=== PATIENT | female | born 1980 | race Caucasian/White ===

== ENCOUNTER 2017-07-28 15:46 | Emergency (ER) | payer BC ==
[2017-07-28] MEDS ORDERED: HYDROCODONE/ACETAMINOPHEN 5-325 MG 6 TAB/DSPK PO PRN (16:37)
[2017-07-28] MEDS ORDERED: KETOROLAC TROMETHAMINE 60 MG/2 ML SDV IM ONE (16:37)
--- NOTE | 2017-07-28 16:47 | ER Document Report ---
ED Extremity Problem, Lower - General Chief Complaint: Knee Pain Stated Complaint: FALL, RIGHT KNEE INJURY Time Seen by Provider: 07/28/17 16:25 Mode of Arrival: Wheelchair Information source: Patient Notes: 37-year-old female presents to ED for complaint of pain to bilateral knees worse on the right. She states she fell last night landing on both knees. She has abrasions to both knees with swelling to the right. She states she was work walking today at work but as the day has gone on the pain is gotten worse and the swelling has become worse. She states she took some Tylenol but cannot take ibuprofen because she has had a gastric bypass. TRAVEL OUTSIDE OF THE [place] IN LAST 30 DAYS: No - HPI Patient complains to provider of: Injury, Pain, Swelling Location: Knee Occurred: Yesterday Where: Home Onset/Duration: Persistent Quality of pain: Achy, Sharp, Throbbing Severity: Mild Pain Level: 2 Context: Fell, Other - abrasion Recent injury: Yes Associated symptoms: Painful ambulation Exacerbated by: Movement, Walking Relieved by: Elevation, Ice - Related Data Allergies/Adverse Reactions: No Known Allergies Allergy (Unverified 07/28/17 15:50) Past Medical History - General Information source: Patient - Social History Smoking Status: Current Every Day Smoker Cigarette use (# per day): Yes - 2-3 cig a day Chew tobacco use (# tins/day): No Smoking Education Provided: Yes - less than 1 min Frequency of alcohol use: Social Drug Abuse: None 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 denies: Arthritis, CAD, COPD, CVA, DM, Hypertension Patient has suicidal ideation: No Patient has homicidal ideation: No - Past Medical History Cardiac Medical History: Reports: None Pulmonary Medical History: Reports: None EENT Medical History: Reports: None Neurological Medical History: Reports: None Endocrine Medical History: Reports: None Renal/ Medical History: Reports: None Malignancy Medical History: Reports: None GI Medical History: Reports: None Musculoskeltal Medical History: Reports Hx Musculoskeletal Deformity - Leg deformity at and needed to wear leg braces for many months, Reports Hx Musculoskeletal Trauma Psychiatric Medical History: Reports: Hx Anxiety Traumatic Medical History: Reports: Hx Fractures - left foot Infectious Medical History: Reports: None Past Surgical History: Reports: Hx Adenoidectomy, Hx Cholecystectomy, Hx Gastric Bypass Surgery, Hx Oral Surgery, Hx Tonsillectomy - Immunizations Immunizations up to date: Yes Review of Systems - Review of Systems Constitutional: No symptoms reported EENT: No symptoms reported Cardiovascular: No symptoms reported Respiratory: No symptoms reported Gastrointestinal: No symptoms reported Genitourinary: No symptoms reported Female Genitourinary: No symptoms reported Musculoskeletal: Joint pain, Joint swelling, Muscle pain, Muscle stiffness Skin: Other - Abrasions both knees Hematologic/Lymphatic: No symptoms reported Neurological/Psychological: No symptoms reported -: Yes All other systems reviewed and negative Physical Exam - Vital signs Vitals: Temp Pulse Resp BP Pulse Ox 98.2 F 83 16 117/80 98 07/28/17 15:51 07/28/17 15:51 07/28/17 15:51 07/28/17 15:51 07/28/17 15:51 Interpretation: Normal - General General appearance: Appears well, Alert - HEENT Head: Normocephalic, Atraumatic Eyes: Normal Pupils: PERRL - Respiratory Respiratory status: No respiratory distress Chest status: Nontender Breath sounds: Normal Chest palpation: Normal - Cardiovascular Rhythm: Regular Heart sounds: Normal auscultation Murmur: No - Abdominal Inspection: Normal Distension: No distension Bowel sounds: Normal Tenderness: Nontender Organomegaly: No organomegaly - Back Back: Normal, Nontender - Extremities General upper extremity: Normal inspection, Nontender, Normal color, Normal ROM , Normal temperature General lower extremity: Normal color, Normal ROM, Normal temperature, Normal weight bearing. No: Andre's sign Knee: Tender, Abrasion, Ecchymosis, Pain with ROM, Patellar tendon intact. No: Deformity, Dislocation, Drawer's test instability, Laceration, Laxity with valgus stress, Laxity with varus stress, Popliteal fossa tender, Tender joint line - Neurological Neuro grossly intact: Yes Cognition: Normal Orientation: AAOx4 [place] Coma Scale Eye Opening: Spontaneous [place] Coma Scale Verbal: Oriented [place] Coma Scale Motor: Obeys Commands [place] Coma Scale Total: 15 Speech: Normal Motor strength normal: LUE, RUE, LLE, RLE Sensory: Normal - Psychological Associated symptoms: Normal affect, Normal mood - Skin Skin Temperature: Warm Skin Moisture: Dry Skin Color: Normal Course - Vital Signs Vital signs: Temp Pulse Resp BP Pulse Ox 98.2 F 76 16 108/71 98 07/28/17 15:51 07/28/17 18:30 07/28/17 18:30 07/28/17 18:30 07/28/17 18:30 - Diagnostic Test Radiology reviewed: Image reviewed, Reports reviewed Discharge - Discharge Clinical Impression: Abrasion of knee, bilateral, Bilateral knee contusion Fall Qualifiers: Encounter type: initial encounter Qualified Code(s): W19.XXXA - Unspecified fall, initial encounter Condition: Stable Disposition: HOME, SELF-CARE Instructions: Family Physicians / Practices Additional Instructions: CONTUSION: Your injury has resulted in a contusion -- a crushing of the deep tissues. No injury to important structures was detected during the physician's exam. Contusions vary in the amount of pain they cause, and in the length of time required for healing. Typically, the area will become bruised, and will remain painful to touch for two or three weeks. However, most patients are back to working and playing within a few days. After the initial period of rest and cold-packs, your symptoms (together with the doctor's recommendations) will determine how rapidly you can get back to full activity. Usually this means "do what feels okay, but don't do things that hurt." If re-examination was recommended, it's important to follow up as instructed. Call the doctor or return any time if pain increases, if swelling becomes severe, if you develop numbness or weakness in an injured extremity, or if any other alarming symptoms occur. ABRASIONS: An abrasion is a scraping injury of the skin. Some scarring may result. The seriousness of an abrasion is not always obvious at first. Hidden tissue damage may be present and infection may occur despite proper care. Complete healing may take from ten days to as long as a month. The healing time depends on the depth of the abrasion, and on the amount of crushing of underlying tissues from the injury. Keep the wound and dressing clean. Do not shower or bathe the area until okayed by the doctor. If the dressing gets wet, remove it and blot the wound dry, then reapply a clean dressing. Dressings should be changed every day. Sunscreen should be used for six months after the skin is healed. If any signs of infection occur (swelling, redness, increasing tenderness, red streaks, profuse purulent drainage from the abrasion, tender lumps in the armpit or groin above the abrasion, or fever), see the doctor immediately. USE OF TYLENOL (ACETAMINOPHEN): Acetaminophen may be taken for pain relief or fever control. It's much safer than aspirin, offering a wider range of "safe" dosages. It is safe during . Some brand names are Tylenol, Panadol, Datril, Anacin 3, Tempra, and Liquiprin. Acetaminophen can be repeated every four hours. The following are maximum recommended dosages: WEIGHT Dose Drops Elixir Chewable( 80mg) (LBS.) drprs=droppers tsp=teaspoon 6 40 mg 0.4 ml (1/2) 6-11 80 mg 0.8 ml (full) tsp 1 tab 12-16 120 mg 1 1/2 drprs 3/4 tsp 1 1/2 tabs 17-23 160 mg 2 drprs 1 tsp 2 tabs 24-30 240 mg 3 drprs 1 1/2 tsp 3 tabs 30-35 320 mg 2 tsp 4 tabs 36-41 360 mg 2 1/4 tsp 4 1/2 tabs 42-47 400 mg 2 1/2 tsp 5 tabs 48-53 480 mg 3 tsp 6 tabs 54-59 520 mg 3 1/4 tsp 6 1/2 tabs 60-64 560 mg 3 1/2 tsp 7 tabs 65-70 600 mg 3 3/4 tsp 7 1/2 tabs 71-76 640 mg 4 tsp 8 tabs 77-82 720 mg 4 1/2 tsp 9 tabs 83-88 800 mg 5 tsp 10 tabs >89 pounds or adults 650 mg to 900 mg Acetaminophen can be repeated every four hours. Maximum dose not to exceed 4000 mg a day. These maximum recommended dosages are slightly higher than the dosages written on the product container, but these dosages are very safe and below the toxic dosage for acetaminophen. ORAL NARCOTIC MEDICATION: You have been given a [place] dispense pack for pain control. This medication is a narcotic. It's best taken with food, as nausea can result if taken on an empty stomach. Don't operate machinery or drive within six hours of taking this medication. Do not combine this medicine with alcohol, or with any medication which can cause sedation (such as cold tablets or sleeping pills) unless you get permission from the physician. Narcotics tend to cause constipation. If possible, drink plenty of fluids and eat a diet high in fiber and fruits. Ice & Elevation Apply ice packs frequently against the painful area. Many different schedules are recommended, such as "20 minutes on, 20 minutes off" or "one hour ice, two hours rest." If you need to work, you may need to go longer between ice treatments. You should plan to have the area ice packed AT LEAST one- fourth of the time. The ice should be applied over the wrap, tape, or splint, or over a layer of cloth -- not directly against the skin. Some ice bags have a built-in cloth and can be put directly on the skin. Your injured part should be elevated as much as possible over the next 48 hours. Try to keep the injury above the level of the heart. Avoid use of the injured area. Elevation and rest will decrease the swelling. FOLLOW-UP CARE: If you have been referred to a physician for follow-up care, call the physician s office for an appointment as you were instructed or within the next two days. If you experience worsening or a significant change in your symptoms, notify the physician immediately or return to the Emergency Department at any time for re-evaluation. Forms: Return to Work
--- NOTE | 2017-07-28 16:55 | RADIOLOGY REPORT (SQ) ---
EXAM DESCRIPTION: KNEE RIGHT 4 VIEWS COMPLETED DATE/TIME: 07/28/2017 4:47 pm REASON FOR STUDY: fall pain injury COMPARISON: None. NUMBER OF VIEWS: Four views. TECHNIQUE: AP, lateral, and both oblique radiographic images acquired of the right knee. LIMITATIONS: None. FINDINGS: MINERALIZATION: Normal. BONES: No acute fracture or dislocation. 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 No worrisome b one lesions. JOINT: No effusion. SOFT TISSUES: No soft tissue swelling. No radio-opaque foreign body. OTHER: No other significant finding. IMPRESSION: NEGATIVE STUDY OF THE RIGHT KNEE. NO RADIOGRAPHIC EVIDENCE OF ACUTE INJURY. TECHNICAL DOCUMENTATION: JOB ID: [id number] [employer]- All Rights Reserved
[2017-07-28 18:31] VITALS: BP 108/71
== END 2017-07-28 18:28 | disposition home or self-care (01) ==
LOC: ER 15:46
DX: S80.212A Abrasion, left knee, initial encounter (principal); S80.211A Abrasion, right knee, initial encounter; W19.XXXA Unspecified fall, initial encounter; Y92.009 Unspecified place in unspecified non-institutional (private) residence as the place of occurrence of the external cause; F17.210 Nicotine dependence, cigarettes, uncomplicated; Z90.49 Acquired absence of other specified parts of digestive tract; Z98.84 Bariatric surgery status
CPT/HCPCS: 99283; 96372; 73564; J1885

== ENCOUNTER 2018-07-06 09:19 | Emergency (ER) | payer BC ==
[2018-07-06] MEDS ORDERED: NORMAL SALINE 1000 ML 1,000 ML IV ONE (10:08)
[2018-07-06] MEDS ORDERED: MECLIZINE HCL 25 MG TABLET PO ONE (10:09)
--- NOTE | 2018-07-06 10:36 | RADIOLOGY REPORT (SQ) ---
EXAM DESCRIPTION: CT HEAD WITHOUT COMPLETED DATE/TIME: 07/06/2018 10:29 am REASON FOR STUDY: Severe dizziness headache COMPARISON: None. TECHNIQUE: Axial images acquired through the brain without intravenous contrast. Images reviewed wi th bone, brain and subdural windows. Additional sagittal and coronal reconstructions were generated. Images stored on PACS. All CT scanners at this facility use dose modulation, iterative reconstruction, and/or weight based d osing when appropriate to reduce radiation dose to as low as reasonably achievable (ALARA). [facility]: Dose Right [facility]: CareDose [facility]: Dose Right [facility]: Teradose 4D [facility]: Smart Carepeutics RADIATION DOSE: CT Rad equipment meets quality standard of care and radiation dose reduction techniq ues were employed. CTDIvol: 53.2 mGy. DLP: 991 mGy-cm. mGy. LIMITATIONS: None. FINDINGS: VENTRICLES: Normal size and contour. CEREBRUM: No masses. No hemorrhage. No midline shift. No evidence for acute infarction. Normal gra y/white matter differentiation. No areas of low density in the white matter. CEREBELLUM: No masses. No hemorrhage. No alteration of density. No evidence for acute infarction. EXTRAAXIAL SPACES: No fluid collections. No masses. ORBITS AND GLOBE: No intra- or extraconal masses. Normal contour of globe without masses. CALVARIUM: No fracture. PARANASAL SINUSES: No fluid or mucosal thickening. SOFT TISSUES: No mass or hematoma. OTHER: No other significant finding. IMPRESSION: NORMAL BRAIN CT WITHOUT CONTRAST. EVIDENCE OF ACUTE STROKE: NO. COMMENT: Quality ID # [id number]: Final reports with documentation of one or more dose reduction techniques (e.g., Automated exposure control, adjustment of the mA and/or kV according to patient size, use of iterative reconstruction technique) TECHNICAL DOCUMENTATION: JOB ID: [id number] [employer] (formerly [employer])- All Rights Reserved Reading location - IP/workstation name: [email or web address]
--- NOTE | 2018-07-06 11:00 | RADIOLOGY REPORT (SQ) ---
EXAM DESCRIPTION: CHEST SINGLE VIEW COMPLETED DATE/TIME: 07/06/2018 10:49 am REASON FOR STUDY: Chest pain/dizziness/short of breath COMPARISON: None. EXAM PARAMETERS: NUMBER OF VIEWS: One view. TECHNIQUE: Single frontal radiographic view of the chest acquired. RADIATION DOSE: NA LIMITATIONS: None. FINDINGS: LUNGS AND PLEURA: No opacities, masses or pneumothorax. No pleural effusion. MEDIASTINUM AND HILAR STRUCTURES: No masses. Contour normal. HEART AND VASCULAR STRUCTURES: Heart normal in size. Normal vasculature. BONES: No acute findings. HARDWARE: None in the chest. OTHER: No other significant finding. IMPRESSION: NO ACUTE RADIOGRAPHIC FINDING IN THE CHEST. TECHNICAL DOCUMENTATION: JOB ID: [id number] [employer]- All Rights Reserved Reading location - IP/workstation name: [email or web address]
[2018-07-06 12:24] LABS: ABSOLUTE EOSINOPHILS # (AUTO) 0.1 10^3/uL (0.0-0.6); ABSOLUTE LYMPHOCYTES (AUTO) 2.3 10^3/uL (0.5-4.7); ABSOLUTE MONOCYTES (AUTO) 0.5 10^3/uL (0.1-1.4); ABSOLUTE NEUT (AUTO) 4.4 10^3/uL (1.7-8.2); BASOPHILS % (AUTO) 0.5 % (0-2); HEMATOCRIT 29.4 % (36.0-47.0); HEMOGLOBIN 10.4 g/dL (12.0-15.5); LYMPHOCYTES % (AUTO) 31.3 % (13-45); MEAN CORPUSCULAR HEMOGLOBIN 36.2 pg (27.0-33.4); MEAN CORPUSCULAR HGB CONC 35.4 g/dL (32.0-36.0); MEAN CORPUSCULAR VOLUME 103 fl (80-97); MONOCYTES % (AUTO) 6.5 % (3-13); PLATELET COUNT 191 10^3/uL (150-450); RED BLOOD COUNT 2.86 10^6/uL (3.72-5.28); RED CELL DISTRIBUTION WIDTH 12.9 % (11.5-14.0); SEGMENTED NEUTROPHILS % (AUTO) 60.7 % (42-78); TOTAL CELLS COUNTED % (AUTO) 100 %; WHITE BLOOD COUNT 7.3 10^3/uL (4.0-10.5)
[2018-07-06 12:31] LABS: INTERNATIONAL RATION (INR) 0.89; PROTHROMBIN TIME 12.5 SEC (11.4-15.4)
[2018-07-06 12:32] LABS: PARTIAL THROMBOPLASTIN TIME 23.2 SEC (23.5-35.8)
[2018-07-06 12:39] LABS: APPEARANCE,URINE HAZY; BILIRUBIN,URINE NEGATIVE (NEGATIVE); COLOR,URINE YELLOW; GLUCOSE, URINE NEGATIVE (NEGATIVE); KETONES,URINE NEGATIVE (NEGATIVE); LEUKOCYTE ESTERASE,URINE NEGATIVE (NEGATIVE); NITRITE,URINE NEGATIVE (NEGATIVE); PROTEIN,URINE NEGATIVE (NEGATIVE); UROBILINOGEN,URINE NEGATIVE mg/dL (<2.0)
[2018-07-06 12:44] LABS: URINE SPECIFIC GRAVITY 1.006
[2018-07-06 12:46] LABS: ALANINE AMINOTRANSFERASE 45 U/L (9-52); ALBUMIN 3.3 g/dL (3.5-5.0); ALKALINE PHOSPHATASE 42 U/L (38-126); ASPARTATE AMINO TRANSFERASE 46 U/L (14-36); BILIRUBIN,DIRECT 0.3 mg/dL (0.0-0.4); BILIRUBIN,TOTAL 0.5 mg/dL (0.2-1.3); BLOOD UREA NITROGEN 15 mg/dL (7-20); CALCIUM 9.2 mg/dL (8.4-10.2); CARBON DIOXIDE 30 mmol/L (22-30); GLUCOSE 86 mg/dL (75-110); LIPASE 236.4 U/L (23-300); POTASSIUM 4.2 mmol/L (3.6-5.0); TOTAL PROTEIN 5.8 g/dL (6.3-8.2)
[2018-07-06 12:50] LABS: D-DIMER < 0.27 ug/mL (0.00-0.50)
[2018-07-06 12:51] LABS: CHLORIDE 104 mmol/L (98-107); SODIUM 138.1 mmol/L (137-145); URINE AMPHETAMINES SCREEN NEGATIVE; URINE BARBITURATES SCREEN NEGATIVE; URINE BENZODIAZEPINES SCREEN UNCONFIRMED POSITIVE; URINE COCAINE SCREEN NEGATIVE; URINE MARIJUANA (THC) SCREEN NEGATIVE; URINE METHADONE SCREEN NEGATIVE; URINE PHENCYCLIDINE SCREEN NEGATIVE
[2018-07-06 12:53] LABS: ANION GAP 4 (5-19)
[2018-07-06] MEDS ORDERED: DEXAMETHASONE SOD PHOS INJ 10 MG/1 ML VIAL IV ONE (13:12)
[2018-07-06] MEDS ORDERED: DIAZEPAM INJ 10 MG/2 ML DISP.SYRIN IV ONE (13:13)
[2018-07-06] MEDS: NORMAL SALINE 1000 ML 1,000 ML IV PRN ×2 (14:03→14:58)
--- NOTE | 2018-07-06 15:50 | ER Document Report ---
ED Dizziness/Weakness - General Chief Complaint: Dizziness Stated Complaint: CHEST PAIN Time Seen by Provider: 07/06/18 09:45 Mode of Arrival: Ambulatory Information source: Patient Notes: Patient is a 38-year-old female comes to emergency room complaining of dizziness lightheadedness and some chest discomfort. Patient states that she is going to her primary care Thursday before this past 1 with some chest discomfort and he did a workup with a some lab work and an EKG and all was normal. Then went to him this past week on Thursday and he placed her up on prednisone naproxen and Xanax. Patient states that the chest pain that she had woke her up out of her sleep last night. And that it has tapered off but her chest is sore. She says that originally 2 weeks ago when she went to her primary that she had bruising on her back and he told her that was from the muscle spasm she has been having. That is why put her on the Xanax. Patient states that a few nights ago she was in the shower and the room started to spin she became lightheaded and nearly blacked out. Since that time she is been having vertigo symptomatology with the room spinning anytime she moves her head or goes from sitting to standing or laying down to sitting. She also stated that she has had a headache off and on and that is more frontal with radiation to the back of her head. On physical exam patient is crying because she does not know what is going on. 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 She has an IUD in place. She denies any abnormal vaginal bleeding. She denies any black stools and no vomiting of any type of coffee-ground emesis. TRAVEL OUTSIDE OF THE [place] IN LAST 30 DAYS: No - HPI Patient complains to provider of: Dizziness, Near-syncope, Vertigo Onset: Other - 2 weeks Quality of pain: Throbbing Severity: Moderate Pain Level: 3 Context: Vertigo Associated symptoms: Chest pain, Almost fainted, Headache, Lightheaded, Vertigo , Vomiting Exacerbated by: Change in position, Movement of head Baseline gait: Walks w/o assistance - Related Data Allergies/Adverse Reactions: No Known Allergies Allergy (Unverified 07/28/17 15:50) Past Medical History - General Information source: Patient - Social History Smoking Status: Current Every Day Smoker Cigarette use (# per day): Yes - Half-pack a day Chew tobacco use (# tins/day): No Smoking Education Provided: Yes Frequency of alcohol use: None Drug Abuse: None Lives with: Alone Family History: Reviewed & Not Pertinent, Hyperlipidemia, Malignancy, Thyroid Disfunction. denies: Arthritis, CAD, COPD, CVA, DM, Hypertension Patient has suicidal ideation: No Patient has homicidal ideation: No Renal/ Medical History: Denies: Hx Peritoneal Dialysis Musculoskeletal Medical History: Reports Hx Musculoskeletal Deformity - Leg deformity at and needed to wear leg braces for many months, Reports Hx Musculoskeletal Trauma Psychiatric Medical History: Reports: Hx Anxiety Traumatic Medical History: Reports: Hx Fractures - left foot Past Surgical History: Reports: Hx Adenoidectomy, Hx Cholecystectomy, Hx Gastric Bypass Surgery, Hx Oral Surgery, Hx Tonsillectomy - Immunizations Immunizations up to date: Yes Review of Systems - Review of Systems Constitutional: Weakness EENT: No symptoms reported Cardiovascular: Chest pain Respiratory: No symptoms reported Gastrointestinal: Nausea, Vomiting Genitourinary: No symptoms reported Female Genitourinary: No symptoms reported Musculoskeletal: No symptoms reported Skin: No symptoms reported Hematologic/Lymphatic: No symptoms reported Neurological/Psychological: Anxiety, Weakness, Headaches. denies: Homicidal ideation, Suicidal ideation -: Yes All other systems reviewed and negative Physical Exam - Vital signs Vitals: Temp Pulse Resp BP Pulse Ox 98.1 F 88 14 113/67 99 07/06/18 09:27 07/06/18 09:27 07/06/18 09:27 07/06/18 09:27 07/06/18 09:27 Interpretation: Hypotensive - Notes Notes: Well-nourished well-developed 38-year-old female no apparent distress but is extremely teary and crying throughout the exam. - General General appearance: Alert, Anxious In distress: Moderate - HEENT Head: Normocephalic, Atraumatic Eyes: Normal Conjunctiva: Normal Cornea: Normal Extraocular movements intact: Yes Eyelashes: Normal Ears: Normal. No: Ecchymosis, Pinna laceration, Pinna tenderness, Tragus laceration External canal: No: Normal, Blood in canal, Cerumen impaction, Swollen Tympanic membrane: No: Normal, Bulging Nasal: Normal Mouth/Lips: Normal Mucous membranes: Normal Pharynx: Normal, Erythema, Peritonsillar abscess. No: Blood in hypopharynx, Exudate, Post nasal drainage, Retropharyngeal abscess, Tonsillar hypertrophy, Uvular edema, Potential airway comprom. Neck: Normal, Supple. No: Anterior cervical chain, Posterior cervical chain, Carotid bruit, Kernig's, Lymphadenopathy, Meningismus, Neck mass, Subcutaneous emphysema, Thyroid nodule - Respiratory Respiratory status: No respiratory distress Chest status: Nontender Breath sounds: Normal. No: Rales, Rhonchi, Stridor, Wheezing Chest palpation: Normal - Cardiovascular Rhythm: Regular Heart sounds: Normal auscultation Murmur: No - Abdominal Inspection: Normal Distension: No distension Bowel sounds: Normal Tenderness: Nontender Organomegaly: No organomegaly - Extremities General upper extremity: Normal inspection, Nontender, Normal ROM, Normal strength General lower extremity: Normal inspection, Nontender, Normal ROM, Normal strength - Neurological Neuro grossly intact: Yes Cognition: Confused Orientation: AAOx4 Parveen Coma Scale Eye Opening: Spontaneous [place] Coma Scale Verbal: Oriented Parveen Coma Scale Motor: Obeys Commands [place] Coma Scale Total: 15 Speech: Normal Course - Vital Signs Vital signs: Temp Pulse Resp BP Pulse Ox 98.1 F 67 14 100/63 99 07/06/18 09:27 07/06/18 11:45 07/06/18 09:27 07/06/18 11:45 07/06/18 09:27 07/06/18 15:58 On examination I did lay patient flat on the table head in my hands hanging off the back [facility]. I rolled her head left to right and up as I was doing that she got excessively dizzy and nauseated. I continued on watching her eyes as I turned him to the side where she displayed a moderate amount of horizontal fasciculation bilaterally. To me this is somewhat pathognomonic for true vertigo. Now she did have positive orthostatics her heart rate went flex 62 lying down to 115 or 120 standing up. Explaining this to waist once she has a true vertical presentation which we will treat with some steroids meclizine and some Valium and to I think she had a intravascular depletion of volume. Her hemoglobin is 10 she denies any bleeding but she may have a pernicious anemia or a something that needs further workup. I have informed her of this this is why she received benefit from the fluid boluses we have given her. It took 2 L before she even got up and went to the bathroom. She wanted an explanation as to why she was drinking so much and how she could be dehydrated. So I do not think is really a question of dehydration as much as it is question of intravascular volumes. - Laboratory Result Diagrams: 07/06/18 11:40 07/06/18 11:40 Laboratory results interpreted by me: 07/06/18 07/06/18 07/06/18 11:40 11:40 11:40 RBC 2.86 L Hgb 10.4 L Hct 29.4 L MCV 103 H MCH 36.2 H APTT 23.2 L Anion Gap 4 L Creatinine 0.48 L AST 46 H Total Protein 5.8 L Albumin 3.3 L Discharge - Discharge Clinical Impression: Vertigo Anemia Qualifiers: Anemia type: unspecified type Qualified Code(s): D64.9 - Anemia, unspecified Disposition: HOME, SELF-CARE Instructions: Dizziness ([facility]), Meclizine ([facility]), Vertigo ([facility]), Anemia ([facility]), Anemia, Iron Deficiency ([facility]) Additional Instructions: Home and rest. Medications as prescribed. As we discussed you really need to discuss the possibility of a pernicious type of anemia or a iron deficiency anemia you need a workup on your anemia. As you know it is not massively low is still low. You may be when these people do respond to a normal low problem. Also you are you are definitely displaying signs of vertigo. You have bilateral horizontal fasciculation which is kind of pathognomonic for it at this point he cannot drive a car until you are off medications for 1 week. And symptoms have disappeared. 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 Should you have any concerns or problems return to ER for recheck. Prescriptions: Diazepam [Valium 5 mg Tablet] 5 mg PO QIDP PRN #12 tablet PRN Reason: Meclizine HCl 25 mg PO TID #30 tablet Prednisone [Sterapred Ds] 10 mg PO ASDIR PRN 6 Days #1 tab.ds.pk PRN Reason: Referrals: KAMERON ROSA MD [Primary Care Provider] - Follow up as needed
[2018-07-06 17:02] VITALS: BP 98/68
--- NOTE | 2018-07-06 19:54 | EKG REPORT ---
SEVERITY:- NORMAL ECG - SINUS RHYTHM : Confirmed by: Nabila Haynes MD 06-Jul-2018 19:53:33
== END 2018-07-06 17:03 | disposition home or self-care (01) ==
LOC: ER 09:19
DX: R55 Syncope and collapse (principal); D64.9 Anemia, unspecified; R07.9 Chest pain, unspecified; R51 Headache; R53.1 Weakness; R11.2 Nausea with vomiting, unspecified; F41.9 Anxiety disorder, unspecified; F17.210 Nicotine dependence, cigarettes, uncomplicated; Z97.5 Presence of (intrauterine) contraceptive device
CPT/HCPCS: 93005; 99285; 96361; 96374; 36415; 83690; 85025; 85610; 85730; 81025; 80053; 81001; 84484; 80307; 85379; 71045; 70450; 93010; J7030; J1100

== ENCOUNTER 2020-04-04 02:23 | Emergency (ER) | payer BC, OTHER ==
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
[2020-04-04] MEDS ORDERED: OXYCODONE-ACETAMINOPHEN 5-325 MG TABLET PO ONE (06:09)
[2020-04-04 06:59] VITALS: BP 118/93
== END 2020-04-04 06:40 | disposition home or self-care (01) ==
LOC: ER 02:23
DX: S60.229A Contusion of unspecified hand, initial encounter (principal); T74.11XA Adult physical abuse, confirmed, initial encounter; M79.641 Pain in right hand; Y09 Assault by unspecified means; F17.200 Nicotine dependence, unspecified, uncomplicated
CPT/HCPCS: 99283

== ENCOUNTER 2020-08-15 20:47 | Emergency (ER) | payer BC ==
[2020-08-15 21:07] VITALS: BP 137/104
== END 2020-08-15 21:37 | disposition left against medical advice (07) ==
LOC: ER 20:47
DX: Z53.21 Procedure and treatment not carried out due to patient leaving prior to being seen by health care provider (principal)

== ENCOUNTER 2020-09-08 10:24 | Emergency (ER) | payer BC ==
[2020-09-08] MEDS ORDERED: DIPH/PERTUSS(ACELL)/TETANUS VAC/PF 0.5 ML SYR (>=10YO) IM ONE (10:47)
[2020-09-08] MEDS ORDERED: CLINDAMYCIN HCL 150 MG CAPSULE PO ONE (10:48)
--- NOTE | 2020-09-08 11:19 | RADIOLOGY REPORT (SQ) ---
EXAM DESCRIPTION: HAND RIGHT 3 VIEWS IMAGES COMPLETED DATE/TIME: 09/08/2020 11:04 am REASON FOR STUDY: cat bite COMPARISON: 04/04/2020 NUMBER OF VIEWS: Three views right hand and index finger. LIMITATIONS: None. FINDINGS: There is no acute or significant bone, joint or soft tissue abnormality. OTHER: No other significant finding. IMPRESSION: NORMAL STUDY. TECHNICAL DOCUMENTATION: JOB ID: [id number] Reading location - IP/workstation name: [email or web address]
--- NOTE | 2020-09-08 11:40 | ER Document Report ---
ED Hand/Wrist Injury - General Chief Complaint: Finger Injury Stated Complaint: RIGHT INDEX FINGER PAIN/SWELLING Time Seen by Provider: 09/08/20 10:47 Primary Care Provider: KAMERON ROSA MD [Primary Care Provider] - Follow up as needed KOFI GONZALEZ JR, DO [ACTIVE PROVISIONAL STAFF] - Follow up as needed TRAVEL OUTSIDE OF THE [place] IN LAST 30 DAYS: No - HPI Notes: 40-year-old female presents to ED for evaluation of to the right index finger sustained over 1 week ago. Patient reports he was delayed in seeking medical care as she had recently been getting . Notes that she has had increased swelling and decreased range of motion of the digit. Denies radiation of pain up into the wrist. Notes that she has not been on a course of antibiotics. Unable to recall her last tetanus vaccine. States that the cats are both indoor and outdoor cats and she is uncertain of the rabies vaccination status however reports that she has been observing the cat and has not noticed any concerning signs or symptoms. Has no fever, chills, chest pain, shortness of breath, or changes in bowel or bladder function. Patient reports she has no streaking redness up her hand or into her wrist. Denies other complaints. - Related Data Allergies/Adverse Reactions: No Known Allergies Allergy (Verified 04/06/19 12:53) Past Medical History - Social History Smoking Status: Never Smoker Chew tobacco use (# tins/day): No Frequency of alcohol use: None Drug Abuse: None Family History: Reviewed & Not Pertinent, Hyperlipidemia, Malignancy, Thyroid Disfunction. denies: Arthritis, CAD, COPD, CVA, DM, Hypertension Renal/ Medical History: Denies: Hx Peritoneal Dialysis Musculoskeletal Medical History: Reports Hx Musculoskeletal Deformity - Leg deformity at and needed to wear leg braces for many months, Reports Hx Musculoskeletal Trauma Psychiatric Medical History: Reports: Hx Anxiety Traumatic Medical History: Reports: Hx Fractures - left foot Past Surgical History: Reports: Hx Abdominal Surgery - GBP, hernia, Hx Adenoidectomy, Hx Cholecystectomy, Hx Gastric Bypass Surgery, Hx Oral Surgery, Hx Tonsillectomy - Immunizations Immunizations up to date: Yes Review of Systems - Review of Systems Notes: Constitutional: Negative for fever. HENT: Negative for sore throat. Eyes: Negative for visual changes. Cardiovascular: Negative for chest pain. Respiratory: Negative for shortness of breath. Gastrointestinal: Negative for abdominal pain, vomiting or diarrhea. Genitourinary: Negative for dysuria. Musculoskeletal: Negative for back pain. Skin: Positive for puncture wound to the hand with surrounding erythema. Neurological: Negative for headaches, weakness or numbness. 10 point ROS negative except as marked above and in HPI. Physical Exam - Vital signs Vitals: Temp Pulse Resp BP Pulse Ox 98.4 F 71 16 116/78 98 09/08/20 10:39 09/08/20 10:39 09/08/20 10:39 09/08/20 10:39 09/08/20 10:39 General: No acute distress. Alert and oriented x3. Skin: No jaundice, pallor, or rashes. Warm and dry. Musculoskeletal: Right Hand: Puncture wound to dorsal distal index finger along DIP joint. Surrounding erythema. No fluctuance. Minor warmth. No ecchymosis, deformities or rashes. Decreased strength to DIP joint of 2nd digit with d ecreased ROM. Ttenderness to palpation. No tenderness about anatomical snuffbox. All other digits with with good flexion and extension about MCP, PIP and DIP joints. Brisk capillary refill. Radial pulses 2+ bilaterally. Wrist nontender with good range of motion. Neuro: GCS 15. Course - Re-evaluation Re-evalutation: 09/08/20 15:53 40-year-old female presents to ED for evaluation of cat bite sustained to the right hand 1 week ago. Patient notes that she has not been on any antibiotics. Patient has minor warmth and swelling to the second digit of the right hand. The distal phalanx does have decreased range of motion along the PIP joint. Patient does not have erythema tracking up the hand and I have low suspicion for tenosynovitis at this time. Patient was evaluated with x-rays which were interpreted by radiology and reviewed by myself. I do not see evidence of osteomyelitis at this time. Patient's vital signs are reassuring. I discussed with patient that I believe she would benefit from a course of clindamycin and an updated tetanus vaccine. She may use anti-inflammatory medications for pain management is referred to a hand specialist. Patient is advised that she does have infection secondary to the bite that she sustained. Patient was advised that if she develops any new or worsening symptoms she should return to the ED for further evaluation and management. She is also encouraged to have routine follow-up with her primary care physician. She understands this course of management and is agreeable with care plan - Vital Signs Vital signs: Temp Pulse Resp BP Pulse Ox 98.2 F 74 16 118/76 99 09/08/20 11:51 09/08/20 11:51 09/08/20 11:51 09/08/20 11:51 09/08/20 11:51 - Laboratory Results Critical Laboratory Results Reviewed: No Critical Results - Radiology Results Critical Radiology Results Reviewed: No Critical Results Discharge - Discharge Clinical Impression: Cat bite of index finger Qualifiers: Encounter type: initial encounter Qualified Code(s): S61.258A - Open bite of other finger without damage to nail, initial encounter Condition: Stable Disposition: HOME, SELF-CARE Prescriptions: Ketorolac Tromethamine [Toradol 10 mg Tablet] 10 mg PO Q8HP PRN #15 tablet PRN Reason: Clindamycin HCl 300 mg PO Q6H 10 Days #40 capsule Referrals: KAMERON ROSA MD [Primary Care Provider] - Follow up as needed KOFI GONZALEZ JR, DO [ACTIVE PROVISIONAL STAFF] - Follow up as needed
[2020-09-08 11:54] VITALS: BP 118/76
== END 2020-09-08 11:50 | disposition home or self-care (01) ==
LOC: ER 10:24
DX: S61.258A Open bite of other finger without damage to nail, initial encounter (principal); M79.644 Pain in right finger(s); M79.89 Other specified soft tissue disorders; M25.531 Pain in right wrist; W55.03XA Scratched by cat, initial encounter
CPT/HCPCS: 90471; 90715; 99283